=== PATIENT | female | born 1945 | race Hispanic/Latino ===

== ENCOUNTER 2017-10-28 10:34 | Day surgery (SDC) | payer MEDICARE ==
[2017-10-27 07:53] VITALS: BMI 25.7
[2017-10-28] MEDS ORDERED: Etomidate 20 mg/10ml Inj IV ONE (13:58)
[2017-10-28] MEDS ORDERED: Propofol 10 mg/ml Inj (20 ML) ONE (14:00)
[2017-10-28] MEDS ORDERED: Sodium Chloride 0.9% 1,000 ML IV SCH (14:30)
[2017-10-28 15:37] VITALS: BP 135/61; PULSE 71; RESP 16; TEMP 98.4; O2SAT 97
== END 2017-10-28 15:49 | disposition home or self-care (01) ==
LOC: ENDO 10:34
PROVIDERS: ATTEND Internal Medicine Gastroenterology
DX: K29.50 Unspecified chronic gastritis without bleeding (principal); K44.9 Diaphragmatic hernia without obstruction or gangrene; I10 Essential (primary) hypertension; E78.5 Hyperlipidemia, unspecified; D50.9 Iron deficiency anemia, unspecified
CPT/HCPCS: 43239; 88305; 88342; J2001; J2704; J7030; J7040